=== PATIENT | male | born 1990 | race Caucasian/White ===

== ENCOUNTER 2018-03-20 02:34 | Emergency (ER) | payer OTHER ==
[2018-03-20] MEDS ORDERED: Sodium Chloride 0.9% 10 ML Syringe FLUSH PRN (03:06)
[2018-03-20] MEDS ORDERED: HYDROmorphone 1 MG/ML Syringe IVPUSH ONE (03:06)
[2018-03-20] MEDS ORDERED: Ondansetron 4 MG/2 ML SDV IVPUSH ONE (03:06)
[2018-03-20] MEDS ORDERED: HYDROmorphone 1 MG/ML Syringe ONE (03:19)
[2018-03-20] MEDS ORDERED: Ondansetron 4 MG/2 ML SDV ONE (03:19)
[2018-03-20] MEDS ORDERED: ceFAZolin 1 GM in Premix Bag 1 BAG IV ONE (04:24)
[2018-03-20] MEDS ORDERED: ceFAZolin 1 GM in Sodium Chloride 0.9% 50 ML IV ONE (04:34)
--- NOTE | 2018-03-20 05:24 | EDM.PDOC ---
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 He doesn't think there was anything sharp that could have punctured his arm but there is clearly a hole in both his shirt and arm. Complains of severe pain. Right Lower Arm Pain Score (Numeric/FACES): 10 - Related Data Allergies Allergy/AdvReac Type Severity Reaction Status Date / Time mold Allergy Difficulty Verified 03/20/18 02:57 Breathing Home Meds: Home Meds NK [No Known Home Meds] 03/20/18 [History] Past Medical History HEENT History: Reports: Impaired Vision Musculoskeletal History: Reports: Fracture Psychiatric History: Reports: Suicidal Ideation Social & Family History - Tobacco Use Smoking Status *Q: Current Every Day Smoker Years of Tobacco use: 10 Packs/Tins Daily: 1 - Caffeine Use Caffeine Use: Reports: Coffee, Soda - Recreational Drug Use Recreational Drug Use: No Review of Systems - Review of Systems Review Of Systems: ROS reveals no pertinent complaints other than HPI. ED EXAM, GENERAL - Physical Exam Exam: See Below Exam Limited By: No Limitations General Appearance: Alert, WD/WN, Severe Distress (sever pain) Extremities: Other (swelling to proximal forearm in both flexor and extensor compartments. Able to move wrist and fingers without excessive pain. Swelling is localized and muscles tender but not c/w compartment syndrome. Puncture wound about 5 mm diameter to flexor surface of prox forearm oozing dark blood. No oobvious foreign body.) Neurological: No Motor/Sensory Deficits Course - Vital Signs Last Recorded V/S: Last Vital Signs Temp 36.1 C 03/20/18 03:03 Pulse 65 03/20/18 03:03 Resp 18 03/20/18 03:03 BP 139/86 03/20/18 03:03 Pulse Ox 95 03/20/18 03:03 - Orders/Labs/Meds Orders: Active Orders 24 hr Category Date Time Status Forearm 2V Rt [CR] Stat Exams 03/20/18 03:06 Taken Sodium Chloride 0.9% [Saline Flush] Med 03/20/18 03:06 Active 10 ml FLUSH ASDIRECTED PRN Saline Lock Insert [OM.PC] Urgent Oth 03/20/18 03:06 Ordered Medication Orders Sodium Chloride (Saline Flush) 10 ml FLUSH ASDIRECTED PRN PRN Reason: Keep Vein Open Last Admin: 03/20/18 03:25 Dose: 10 ml Meds: Medications Generic Name Dose Route Start Last Admin Trade Name Freq PRN Reason Stop Dose Admin Sodium Chloride 10 ml 03/20/18 03:06 03/20/18 03:25 Saline Flush FLUSH 10 ml ASDIRECTED PRN Administration Keep Vein Open Discontinued Medications Generic Name Dose Route Start Last Admin Trade Name Freq PRN Reason Stop Dose Admin Hydromorphone HCl 1 mg 03/20/18 03:06 03/20/18 03:21 Dilaudid IVPUSH 03/20/18 03:07 1 mg ONETIME ONE Administration Hydromorphone HCl Confirm 03/20/18 03:19 03/20/18 03:25 Dilaudid Administered 03/20/18 03:20 Not Given Dose 1 mg .ROUTE .STK-MED ONE Cefazolin Sodium 1,000 mg/ 50 mls @ 100 mls/hr 03/20/18 04:14 03/20/18 04:28 Sodium Chloride IV 03/20/18 04:43 Not Given ONETIME ONE Cefazolin Sodium/Dextrose 1 gm 50 mls @ 100 mls/hr 03/20/18 04:24 03/20/18 04 :35 / Premix IV 03/20/18 04:53 Not Given ONETIME ONE Cefazolin Sodium 1 gm/ Sodium 50 mls @ 100 mls/hr 03/20/18 04:34 03/20/18 04: 46 Chloride IV 03/20/18 05:03 100 mls/hr ONETIME ONE Administration Ondansetron HCl 4 mg 03/20/18 03:06 03/20/18 03:21 Zofran IVPUSH 03/20/18 03:07 4 mg ONETIME ONE Administration Ondansetron HCl Confirm 03/20/18 03:19 03/20/18 03:25 Zofran Administered 03/20/18 03:20 Not Given Dose 4 mg .ROUTE .STK-MED ONE - Radiology Interpretation Free Text/Narrative:: No fracture or dislocation. No FB. Small amount air in tissues. - Re-Assessments/Exams Free Text/Narrative Re-Assessment/Exam: 03/20/18 05:[address] Warner as I felt it may need to be explored /irrigated. He wants him to see Dr Benz at 8 am in clinic. Wound cleaned and dressed. Rec'd 1 gm ancef IM. Tdap. Dilaudid and zofran given. Departure - Departure Time of Disposition: 05:27 Disposition: Home, Self-Care 01 Condition: Fair Clinical Impression: Crush injury forearm, Puncture wound of forearm - Discharge Information Referrals: PCP,None [Primary Care Provider] - Additional Instructions: Followup in clinic with Dr Benz at 8 am. leave dressing in place. Pain meds can cause sedation and impair driving or operating machinery. - My Orders Last 24 Hours: My Active Orders 03/20/18 03:06 Forearm 2V Rt [CR] Stat Sodium Chloride 0.9% [Saline Flush] 10 ml FLUSH ASDIRECTED PRN Saline Lock Insert [OM.PC] Urgent - Assessment/Plan Last 24 Hours: My Active Orders 03/20/18 03:06 Forearm 2V Rt [CR] Stat Sodium Chloride 0.9% [Saline Flush] 10 ml FLUSH ASDIRECTED PRN Saline Lock Insert [OM.PC] Urgent
[2018-03-20] MEDS ORDERED: Diphtheria,Pertussis(Acell),Tetanus Vaccine 0.5 ML SDV IM ONE (05:29)
--- NOTE | 2018-03-20 08:27 | CR ---
Forearm 2V Rt CLINICAL HISTORY: Trauma FINDINGS: There is some soft tissue swelling in the upper forearm. There appears to be air within the soft tissues likely related to laceration. There is no acute fracture within the forearm. IMPRESSION: Soft tissue swelling No fracture
== END 2018-03-20 05:51 | disposition home or self-care (01) ==
LOC: JP.ED 02:34
DX: S51.831A Puncture wound without foreign body of right forearm, initial encounter (principal); S57.81XA Crushing injury of right forearm, initial encounter; F17.210 Nicotine dependence, cigarettes, uncomplicated; X58.XXXA Exposure to other specified factors, initial encounter; Z91.048 Other nonmedicinal substance allergy status
CPT/HCPCS: 73090; 90471; 90715; 96374; 96375; 99284; J0690; J1170; J2405; J7050

== ENCOUNTER 2020-08-11 23:32 | Emergency (ER) | payer BC ==
[2020-08-11] MEDS ORDERED: Ketorolac 30 MG/ML SDV IM ONE (23:45)
--- NOTE | 2020-08-11 23:46 | EDM.PDOC ---
ED HPI GENERAL MEDICAL PROBLEM - General Chief Complaint: Chest Pain Stated Complaint: POSSIBLE BROKEN RIBS LT SIDE Time Seen by Provider: 08/11/20 23:40 Source of Information: Reports: Patient History Limitations: Reports: No Limitations - History of Present Illness INITIAL COMMENTS - FREE TEXT/NARRATIVE: Rajinder is a 29-year-old male presenting to the ED for left-sided chest pain. His symptoms started a week ago when he was wrestling with his brother and was "squeezed across the chest" causing rib pain. Tonight he was at work pushing a tote which caused him to strain and reinjure his left chest prompting him to come in for evaluation. He denies any fever, chills, cough or shortness of breath. He does have pleurodynia and tenderness to palpation. - Related Data Allergies Allergy/AdvReac Type Severity Reaction Status Date / Time mold Allergy Difficulty Verified 08/11/20 23:42 Breathing Home Meds: Home Meds ARIPiprazole [Abilify] 2 mg PO DAILY 08/11/20 [History] Past Medical History HEENT History: Reports: Impaired Vision Musculoskeletal History: Reports: Fracture Psychiatric History: Reports: Suicidal Ideation Social & Family History - Caffeine Use Caffeine Use: Reports: Coffee, Soda ED ROS GENERAL - Review of Systems Review Of Systems: See Below Constitutional: Reports: No Symptoms HEENT: Reports: No Symptoms Respiratory: Reports: Pleuritic Chest Pain (Left chest pain with inspiration.) Cardiovascular: Reports: Chest Pain (Left chest pain with palpation.) Endocrine: Reports: No Symptoms GI/Abdominal: Reports: No Symptoms : Reports: No Symptoms Musculoskeletal: Reports: Muscle Pain Skin: Reports: No Symptoms Neurological: Reports: No Symptoms Psychiatric: Reports: No Symptoms Hematologic/Lymphatic: Reports: No Symptoms Immunologic: Reports: No Symptoms ED EXAM, GENERAL - Physical Exam Exam: See Below Exam Limited By: No Limitations General Appearance: Alert, No Apparent Distress Head: Atraumatic, Normocephalic Neck: Normal Inspection, Supple, Non-Tender, Full Range of Motion Respiratory/Chest: No Respiratory Distress, Lungs Clear, Normal Breath Sounds, Splinting (Mild splinting with respiration.), Other (Chest wall tenderness to palpation without evidence of crepitus or step-off. This is predominantly over the left anterior and posterior chest.) Cardiovascular: Normal Peripheral Pulses, Regular Rate, Rhythm, No Murmur Peripheral Pulses: 2+: Radial (L), Radial (R) GI/Abdominal: Normal Bowel Sounds, Soft, Non-Tender Back Exam: Normal Inspection, Full Range of Motion Extremities: Normal Inspection, Normal Range of Motion, Non-Tender Neurological: Alert, Oriented, Normal Cognition, No Motor/Sensory Deficits Psychiatric: Normal Affect, Normal Mood Skin Exam: Warm, Dry, Intact, Normal Color. No: Ecchymosis Lymphatic: No Adenopathy Front/Back Body Diagram: 1 - tenderness and spasm of left rhomboid 2 - tenderness to palpation Course - Vital Signs Last Recorded V/S: Last Vital Signs Temp 36.0 C L 08/11/20 23:42 Pulse 78 08/11/20 23:42 Resp 18 08/11/20 23:42 BP 131/54 L 08/11/20 23:42 Pulse Ox 95 08/11/20 23:42 - Orders/Labs/Meds Orders: Active Orders 24 hr Category Date Time Status Chest wo Cont [CT] Stat Exams 08/12/20 Taken Meds: Medications Discontinued Medications Generic Name Dose Route Start Last Admin Trade Name Yecenia PRN Reason Stop Dose Admin Ketorolac Tromethamine 30 mg 08/11/20 23:45 08/11/20 23:50 Toradol IM 08/11/20 23:46 30 mg ONETIME ONE Administration - Re-Assessments/Exams Free Text/Narrative Re-Assessment/Exam: 08/12/20 00:[address] of the chest without contrast and there is no evidence for any acute rib fractures, pulmonary contusion, or fracture of the scapula. The spine also looks unremarkable. There is no significant infiltrates in the lungs. Normal cardiac silhouette. Patient symptoms are likely related to strain of the muscles of the chest wall. Patient did receive Toradol 30 mg IM in the ED with some improvement in his pain. We will put the patient on oral NSAIDs for the next 5 days which should help resolve this. Indications return to the ED were discussed and all questions were answered. At this time the patient is suitable for discharge in satisfactory condition. Departure - Departure Time of Disposition: 00:28 Disposition: Home, Self-Care 01 Condition: Good Clinical Impression: Chest wall muscle strain Qualifiers: Encounter type: initial encounter Qualified Code(s): S29.011A - Strain of muscle and tendon of front wall of thorax, initial encounter Instructions: Nonspecific Chest Pain, Adult, [id number], Muscle Strain, [id number] Referrals: Valentina Post CNM [Primary Care Provider] - Forms: ED Department Discharge Care Plan Goals: I recommend taking either Aleve 2 tablets twice daily or ibuprofen 600 mg (3 tablets) every 6 hours for the next 5 days to help reduce the pain associated with the strain of the muscles in your chest wall. You may continue activity as tolerated. You should return for reevaluation should you develop significant shortness of breath. Sepsis Event Note (ED) - Focused Exam Vital Signs: Vital Signs Temp Pulse Resp BP Pulse Ox 08/11/20 23:42 36.0 C L 78 18 131/54 L 95 - Problem List & Annotations (1) Chest wall muscle strain SNOMED Code(s): 143200248 Code(s): S29.011A - STRAIN OF MUSCLE AND TENDON OF FRONT WALL OF THORAX, INIT Status: Acute Priority: Medium Current Visit: Yes Qualifiers: Encounter type: initial encounter Qualified Code(s): S29.011A - Strain of muscle and tendon of front wall of thorax, initial encounter - Problem List Review Problem List Initiated/Reviewed/Updated: Yes - My Orders Last 24 Hours: My Active Orders 08/12/20 Chest wo Cont [CT] Stat - Assessment/Plan Last 24 Hours: My Active Orders 08/12/20 Chest wo Cont [CT] Stat
--- NOTE | 2020-08-12 00:42 | CRLCT ---
INDICATION: Left chest pain COMPARISON: CT chest without contrast 08/26/2019 TECHNIQUE: Nonenhanced axial CT imaging through the chest. Sagittal and coronal reconstructions are provided. FINDINGS: The lungs are clear. There is no pleural effusion or pneumothorax. There is redemonstration of mild apical scarring and subpleural bullous changes, similar to slightly worsened compared to prior study. No suspicious pulmonary nodules are identified. There is no mediastinal lymphadenopathy. The heart is nonenlarged. There is no pericardial effusion. There is normal caliber of the main pulmonary artery and thoracic aorta. Mild degenerative changes are noted in the lower thoracic spine. There is irregularity of the superior endplate of T12 representing combination of degenerative small nodes and mild chronic compression deformity. No abnormality is demonstrated in the visualized upper abdomen. IMPRESSION: 1. No acute intrathoracic process, with limitations of noncontrast technique. 2. Mild apical scarring and subpleural bullous changes, similar to slightly worsened compared to prior study. 3. Degenerative changes of the lower thoracic spine with likely mild chronic compression deformity T12 superior endplate. Please note that all CT scans at this facility use dose modulation, iterative reconstruction, and/or weight-based dosing when appropriate to reduce radiation dose to as low as reasonably achievable. Dictated by Mary Ny MD @ Aug 12 2020 12:30AM Signed by Dr. Mary Ny @ Aug 12 2020 12:39AM
== END 2020-08-12 00:35 | disposition home or self-care (01) ==
LOC: JP.ED 23:32
DX: S29.011A Strain of muscle and tendon of front wall of thorax, initial encounter (principal); Z91.09 Other allergy status, other than to drugs and biological substances; X50.0XXA Overexertion from strenuous movement or load, initial encounter; Y93.72 Activity, wrestling; Y99.0 Civilian activity done for income or pay
CPT/HCPCS: 71250; 96372; 99283; J1885